=== PATIENT | female | born 1965 | race Caucasian/White ===

== ENCOUNTER → 2020-09-16 | Outpatient (CLI) | payer MEDICARE, OTHER ==
--- NOTE | 2020-09-17 06:31 | MR ---
EXAMINATION TYPE: MR knee RT wo con DATE OF EXAM: 09/16/2020 COMPARISON: Outside right knee x-ray August 30, 2020 HISTORY: Right knee pain, sharp burning sensation. Fell on Knee. Prior Surgery. TECHNIQUE: Multiplanar, multisequence imaging of the right knee is performed without IV contrast. FINDINGS: MEDIAL MENISCUS: Oblique signal posterior horn extends to inferior articular surface. LATERAL MENISCUS: Anterior horn is truncated appearance with abnormal signal. CRUCIATE LIGAMENTS: The posterior cruciate ligament is intact and unremarkable. Anterior cruciate lig ament remains intact with increased signal and partial tearing of fibers. COLLATERAL LIGAMENTS: The medial collateral ligament and lateral collateral ligament complex are inta ct and unremarkable. EXTENSOR MECHANISM: Visualized quadriceps and patellar tendons are intact. Increased fluid signal in Hoffa's fat pad deep aspect could reflect impingement syndrome. EFFUSION: Small to moderate size suprapatellar joint effusion. POPLITEAL CYST: No popliteal/casper cyst. TRICOMPARTMENT SPACES: Moderate to severe narrowing patellofemoral compartment greatest inferiorly. L ateral tilting or subluxation of patella is noted. Moderate narrowing lateral tibial femoral compartm ent. Moderate spurring lateral tibiofemoral compartment. There is 2.0 x 0.7 cm ossific density adjace nt to distal lateral femoral condyle could reflect old avulsion type injury corresponding to x-ray. CARTILAGE: Significant chondromalacia patella with full thickness cartilaginous loss of articular car tilage posterior patellar pole. Significant cartilaginous loss lateral aspect lateral tibial femoral compartment. BONE MARROW SIGNAL: Areas of abnormal signal in the fibular head tubular shaped and extend outside pey[place] int space could reflect vascular anomaly. OTHER: There is 1.8 cm ossific intra-articular loose body sagittal image 13 corresponding to radiogr aph. IMPRESSION: 1. Oblique full thickness tear posterior horn medial meniscus. 2. Complex full-thickness tear anterior horn lateral meniscus. 3. Lateral subluxation patella with fairly advanced patellofemoral joint arthropathy. 4. Moderate to advanced lateral tibial femoral compartment degenerative changes as detailed above. 5. Partial tearing of the anterior cruciate ligament. 6. Small to moderate-sized suprapatellar joint effusion. 7. Intra-articular 1.8 cm ossific loose body posteriorly. Ossific 2.0 cm density adjacent to lateral femoral condyle possible old injury.
== END | disposition home or self-care (01) ==
LOC: RADMRIMAIN 09:23
PROVIDERS: ATTEND Orthopaedic Surgery
DX: M23.322 Other meniscus derangements, posterior horn of medial meniscus, left knee (principal); M23.341 Other meniscus derangements, anterior horn of lateral meniscus, right knee; M17.11 Unilateral primary osteoarthritis, right knee

== ENCOUNTER → 2020-10-11 | Outpatient (CLI) | payer MEDICARE, OTHER ==
[2020-10-11 15:34] LABS: Basophils % (A) 1 %; Eosinophils # (A) 0.2 k/uL (0-0.7); Eosinophils % (A) 3 %; HCT 41.1 % (34.0-46.0); HGB 13.3 gm/dL (11.4-16.0); Lymphocytes # (A) 1.7 k/uL (1.0-4.8); Lymphocytes % (A) 23 %; MCH 30.2 pg (25.0-35.0); MCHC 32.3 g/dL (31.0-37.0); MCV 93.6 fL (80.0-100.0); Mean Platelet Volume 7.8; Monocytes # (A) 0.4 k/uL (0-1.0); Monocytes % (A) 5 %; Neutrophils % (A) 68 %; Platelet Count 193 k/uL (150-450); RBC 4.39 m/uL (3.80-5.40); RDW 13.6 % (11.5-15.5); WBC 7.4 k/uL (3.8-10.6)
[2020-10-11 15:42] LABS: Potassium 4.9 mmol/L (3.5-5.1)
== END | disposition home or self-care (01) ==
LOC: LABPAT 13:16
PROVIDERS: ATTEND Orthopaedic Surgery
DX: Z01.818 Encounter for other preprocedural examination (principal); M23.91 Unspecified internal derangement of right knee; I44.0 Atrioventricular block, first degree; I44.4 Left anterior fascicular block; R94.31 Abnormal electrocardiogram [ECG] [EKG]
CPT/HCPCS: 36415; 80051; 85025; 93005

== ENCOUNTER 2020-10-24 08:42 | Day surgery (SDC) | payer MEDICARE, OTHER ==
[2020-10-23 11:44] VITALS: BMI 36.6
--- NOTE | 2020-10-23 20:16 | HP ---
HISTORY AND PHYSICAL REASON FOR ADMISSION: Surgery scheduled for 10/24/2020. HISTORY OF PRESENT ILLNESS: Frida Sinclair is a 55-year-old patient seen with progressive right knee pain. Treatment options were discussed, she elected to proceed with right knee arthroscopy. Consent was obtained. PAST MEDICAL HISTORY: Hypertension, hypothyroidism, gastroesophageal reflux disease, hyperlipidemia. PAST SURGICAL HISTORY: Noncontributory. DAILY MEDICATIONS: Amlodipine, levothyroxine, omeprazole, simvastatin. ALLERGIES: None. SOCIAL HISTORY: She denies tobacco use. PHYSICAL EVALUATION OF THE RIGHT KNEE: Range of motion -2 to 90. Mild to moderate effusion. Tenderness along the lateral joint line. Positive lateral Lita's. Crepitus along the lateral compartment with range of motion. Ligaments stable. Hip rotation without pain. Distal neurovascular exam is intact. RADIOGRAPHS: Radiographs of the right knee reveal osteoarthritic changes. MRI of the right knee revealed medial and lateral meniscal tears, osteoarthritic changes, intra-articular effusion and loose body. IMPRESSION: 1. Internal derangement of right knee with medial and lateral meniscal tears and loose body. 2. Right knee osteoarthritis. 3. Hypertension. 4. Hyperlipidemia. PLAN: Right knee arthroscopy with partial meniscectomy, removal loose body and debridement. Surgery 10/24/2020. MMODL / IJN: [id number] /
[~2020-10-24 08:42] MED LIST: DEXAMETHASONE SOD PHOSPHATE 4 MG/ML 1 ML VIAL IV ONE; LACTATED RINGERS 1,000 ML IV SCH; LIDOCAINE 1% (10MG/ML) FOR IV START INTRADERMA PRN
[2020-10-24] MEDS ORDERED: SCOPOLAMINE 1.5MG/72HR PATCH TRANSDERM ONE (09:36)
[2020-10-24] MEDS: ONDANSETRON 4 MG/2 ML VIAL IVP ONE ×2 (09:36→10:38)
[2020-10-24] MEDS ORDERED: LIDOCAINE 1% INJ 10MG/ML (20 ML MDV) ONE (09:50)
[2020-10-24] MEDS ORDERED: PROPOFOL 10 MG/ML 20 ML VIAL IV ONE (09:50)
[2020-10-24] MEDS ORDERED: MIDAZOLAM 2 MG/2 ML VIAL ONE (09:50)
[2020-10-24] MEDS ORDERED: SUCCINYLCHOLINE CHLORIDE 100 MG/5 ML SYR IV ONE (09:50)
[2020-10-24] MEDS ORDERED: fentaNYL (PF) 50 MCG/ML 2 ML AMP ONE (09:50)
[2020-10-24] MEDS ORDERED: BUPIVACAINE (PF) 0.25% 30 ML VIAL SQ ONE ×2 (10:08→10:20)
[2020-10-24 10:30] VITALS: TEMP 97
--- NOTE | 2020-10-24 10:30 | P.OP ---
Date of Procedure: 10/24/20 Preoperative Diagnosis: Internal derangement right knee Postoperative Diagnosis: 1. Tear medial meniscus right knee 2. Grade 3/4 chondromalacia medial femoral condyle right knee 3. 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 Reactive synovitis medial, lateral and suprapatellar compartments right knee Procedure(s) Performed: 1. Arthroscopic partial medial meniscectomy right knee 2. Arthroscopic chondroplasty medial femoral condyle right knee 3. Arthroscopic microfracture medial femoral condyle right knee 4. Arthroscopic partial synovectomy medial, lateral and suprapatellar compartments right knee Anesthesia: EMANIA, local Surgeon: Paul Nogueira Estimated Blood Loss (ml): 6 Pathology: none sent Condition: stable Disposition: PACU Indications for Procedure: 55-year-old patient seen with progressive right knee pain. After treatment options were discussed, she elected to proceed with arthroscopy. Operative Findings: see description of procedure Description of Procedure: Patient was taken to the operative suite. Patient underwent a general anesthetic by the department of anesthesia. Patient was given preoperative antibiotics. The right lower extremity was placed in a well-padded arthroscopic leg bergeron. The right leg was prepped and draped in the normal sterile orthopedic fashion. A lateral parapatellar and suprapatellar incision was made. Trochars were inserted. Arthroscopy was initiated. Suprapatellar pouch revealed diffuse thick reactive synovitis. The patellofemoral joint appeared articulate congruently. There grade 4 chondromalacia of both the patella and femoral sulcus with large areas of exposed bone on both sides. The scope was guided into the medial gutter. No loose body or plica were identified. The scope was then guided into the medial compartment. A medial parapatellar incision was made. Trocar inserted followed by probe. There was a tear involving the posterior horn of the medial meniscus. There were grade 3/4 chondromalacia changes of the medial femoral condyle with some large osteochondral flap tear present. There was thick reactive synovitis anteriorly. I performed a partial medial meniscectomy getting down to stable meniscal tissue. I performed a chondroplasty of the medial femoral condyle getting down to stable osteochondral tissue. I performed a partial synovectomy decompressing the thick reactive synovitis. There was good decompression of the synovitis. The residual meniscus was stable. There was an area of exposed bone measuring 1 cm weightbearing surface medial femoral condyle. I introduced a microfracture awl and performed a microfracture to medial femoral condyle penetrating the bone with resultant bleeding at the microfracture site. The residual osteochondral surface was probed and found to be stable. Scope and probe were then guided into the intercondylar notch. Cruciates were identified, probed and found to be stable. The scope and probe were then guided into lateral compartment. Lateral meniscus was probed and found be stable. There was some mild superficial fraying on the posterior area. There was grade 1 chondromalacia of the lateral femoral condyle. There was thick reactive synovitis anteriorly. I introduced a motorized shaver and debrided the area fraying posterior horn lateral meniscus. I performed a partial synovectomy decompressing the reactive synovitis. The shaver was removed. There was good decompression of the synovitis. The scope was in guided back into the suprapatellar compartment. I introduced a motorized shaver into the suprapatellar compartment. I debrided some piecemeal fragments of meniscus I encountered. I performed a partial synovectomy. Shaver was removed. There was good decompression of the synovitis. Instruments were now removed from the joint. The joint was infiltrated with .25% Marcaine. Steri- Strips were applied to the portal sites. Sterile dressings were applied. The patient was placed into a GISELE hose. No tourniquet was utilized. The patient was awakened, transferred to a bed and taken to recovery stable satisfactory condition.
[2020-10-24] MEDS ORDERED: KETOROLAC 15 MG/ML 1 ML VIAL IVP ONE (10:38)
[2020-10-24] MEDS ORDERED: HYDROmorphone 0.5 MG/0.5 ML SYRINGE IVP ONE ×2 (10:40→10:54)
[2020-10-24 11:46] VITALS: RESP 20
[2020-10-24] MEDS ORDERED: HYDROcodone/APAP 5-325MG 1 EACH TAB ONE (11:47)
[2020-10-24] MEDS ORDERED: HYDROcodone/APAP 5-325MG 1 EACH TAB PO ONE (11:48)
[2020-10-24 12:49] VITALS: BP 103/64; PULSE 78
== END 2020-10-24 13:16 | disposition home or self-care (01) ==
LOC: OR 08:42
PROVIDERS: ATTEND Orthopaedic Surgery
DX: M23.203 Derangement of unspecified medial meniscus due to old tear or injury, right knee (principal); M22.41 Chondromalacia patellae, right knee; M65.9 Synovitis and tenosynovitis, unspecified; I10 Essential (primary) hypertension; E03.9 Hypothyroidism, unspecified; K21.9 Gastro-esophageal reflux disease without esophagitis; E78.5 Hyperlipidemia, unspecified; J44.9 Chronic obstructive pulmonary disease, unspecified; F17.200 Nicotine dependence, unspecified, uncomplicated; F32.9 Major depressive disorder, single episode, unspecified; Z90.49 Acquired absence of other specified parts of digestive tract; Z79.890 Hormone replacement therapy; Z79.899 Other long term (current) drug therapy
CPT/HCPCS: 29881; 29879; 29876; J2250; J1100; J0690; J2405; J2001; J3010; J1885; J0330; J2704; J1170